=== PATIENT | male | born 1960 | race American Indian/Alaskan Native ===

== ENCOUNTER 2017-08-18 11:56 | Emergency (ER) | payer OTHER ==
--- NOTE | 2017-08-18 13:13 | ED PDOC ---
HPI: General Adult Time Seen by Provider: 08/18/17 12:13 Chief Complaint (Nursing): Med Refill Chief Complaint (Provider): Med Refill History Per: Patient History/Exam Limitations: no limitations Additional Complaint(s): Feliciano Quan is a 57-year-old male with a past medical history of diabetes, hypertension, cataracts, and glaucoma, who presents to the emergency department requesting medication refills. He states that he ran out of insulin, BP meds and eye drops. Patient reports the clinic in [facility] where he was receiving care recently closed, and he is in the process of signing up for insurance in [place]. Patient offers no acute complaints upon arrival. PMD: None Past Medical History Reviewed: Historical Data, Nursing Documentation, Vital Signs - Medical History PMH: Diabetes, HTN Other PMH: Cataracts, Glaucoma - Surgical History Surgical History: No Surg Hx - Family History Family History: States: No Known Family Hx - Living Arrangements Living Arrangements: Alone - Social History Current smoker - smoking cessation education provided: No Alcohol: Occasional Drugs: Denies - Allergies Allergies/Adverse Reactions: Allergies Allergy/AdvReac Type Severity Reaction Status Date / Time No Known Allergies Allergy Verified 08/18/17 13:23 Review of Systems ROS Statement: Except As Marked, All Systems Reviewed And Found Negative Constitutional: Positive for: Other (here for med refill) Physical Exam - Reviewed Nursing Documentation Reviewed: Yes Vital Signs Reviewed: Yes - Physical Exam Appears: Positive for: Well, Non-toxic, No Acute Distress Head Exam: Positive for: ATRAUMATIC, NORMOCEPHALIC Skin: Positive for: Normal Color. Negative for: Rash Eye Exam: Positive for: Normal appearance Cardiovascular/Chest: Positive for: Regular Rate, Rhythm Respiratory: Positive for: Normal Breath Sounds Neurologic/Psych: Positive for: Alert, Oriented - ECG O2 Sat by Pulse Oximetry: 98 Pulse Ox Interpretation: Normal Medical Decision Making Medical Decision Making: Time: 12:55 Initial Impression: Medication refill Initial Plan: * Call placed to [facility] [address] in [place] to verify patient's prescriptions - rx for insulin glargine, valsartan/HCTZ, xalatan drops, cosopt drops and brimonidine eye drops were authorized. Patient is medically stable for discharge. He was advised to order picker prescriptions at [facility] and follow up with new primary doctor or clinic. Scribe Attestation: Documented by Sonia Velasco, acting as a scribe for Mirtha Shelton PA-C Provider Scribe Attestation: All medical record entries made by the Scribe were at my direction and personally dictated by me. I have reviewed the chart and agree that the record accurately reflects my personal performance of the history, physical exam, medical decision making, and the department course for this patient. I have also personally directed, reviewed, and agree with the discharge instructions and disposition. Disposition - Clinical Impression Clinical Impression: Medicine refill - Disposition Referrals: [facility] [Outside] Disposition Time: 13:26 Condition: STABLE Additional Instructions: Go directly to your pharmacy to pickup your medications. Take as directed. Follow up with clinic. Instructions: Medicine Refill (ED) Forms: [employer] (Albanian)
--- NOTE | 2017-08-18 13:14 | ED PDOC ---
HPI: General Adult Time Seen by Provider: 08/18/17 12:13 Chief Complaint (Nursing): Med Refill Chief Complaint (Provider): med refill History Per: Patient Past Medical History - Medical History PMH: HTN Disposition - Clinical Impression Clinical Impression: Medicine refill - Patient ED Disposition Is Patient to be Admitted: No Counseled Patient/Family Regarding: Diagnosis, Need For Followup - Disposition Referrals: [facility] [Outside] Disposition: Routine/Home Disposition Time: 13:03 Condition: STABLE Additional Instructions: Go directly to your pharmacy to pickup your medications. Take as directed. Follow up with clinic. Instructions: Medicine Refill (ED)
[2017-08-18 13:25] VITALS: BP 154/86; PULSE 89; RESP 16; TEMP 98
[2017-08-18 13:26] VITALS: O2SAT 98
== END 2017-08-18 13:14 | disposition home or self-care (01) ==
LOC: H.ER 11:56
DX: Z76.0 Encounter for issue of repeat prescription (principal); E11.9 Type 2 diabetes mellitus without complications; Z79.4 Long term (current) use of insulin; H40.9 Unspecified glaucoma; I10 Essential (primary) hypertension

== ENCOUNTER 2018-01-04 13:59 | Emergency (ER) | payer MEDICAID, OTHER ==
[2018-01-04 14:08] VITALS: TEMP 98
--- NOTE | 2018-01-04 14:37 | ED PDOC ---
HPI: General Adult Time Seen by Provider: 01/04/18 14:21 Chief Complaint (Nursing): Med Refill Chief Complaint (Provider): medication refill History Per: Patient History/Exam Limitations: no limitations Severity: None Additional Complaint(s): 57yo male presents w request for insulin refill, states takes lantus 51units qhs , no daytime sliding scale coverage. Also takes valsartan for HTN, hasnt taken in several days. Has appt w PMD in 2 weeks. BP found to be markedly elevated but he is asymptomatic. Denies polyuria, polydipsia, weakness, headache, chest pain or SOB. Past Medical History Reviewed: Historical Data, Nursing Documentation, Vital Signs Vital Signs: Last Vital Signs Temp 98.0 F 01/04/18 14:04 Pulse 76 01/04/18 14:04 Resp 16 01/04/18 14:04 BP 186/120 H 01/04/18 15:10 Pulse Ox 98 01/04/18 14:37 - Medical History PMH: Diabetes, HTN - Family History Family History: States: Unknown Family Hx - Social History Current smoker - smoking cessation education provided: No - Home Medications Home Medications: Ambulatory Orders Medication Instructions Recorded Insulin Glargine, Recombina 51 unit SQ HS 30 Days ml 01/04/18 [Lantus] Bridgman, Disposable [Bridgman] 1 each MC DAILY #20 dis.needle 01/04/18 Valsartan [Diovan] 80 mg PO DAILY #20 tab 01/04/18 - Allergies Allergies/Adverse Reactions: Allergies Allergy/AdvReac Type Severity Reaction Status Date / Time No Known Allergies Allergy Verified 01/04/18 14:04 Review of Systems Constitutional: Negative for: Fever ENT: Negative for: Throat Pain Cardiovascular: Negative for: Chest Pain, Palpitations Respiratory: Negative for: Cough, Shortness of Breath Gastrointestinal: Negative for: Abdominal Pain Genitourinary Male: Negative for: Dysuria, Frequency, Incontinence Musculoskeletal: Negative for: Neck Pain, Arm Pain, Back Pain, Leg Pain Skin: Negative for: Rash, Lesions, Jaundice Neurological: Negative for: Weakness, Numbness, Confusion, Headache Physical Exam - Reviewed Nursing Documentation Reviewed: Yes Vital Signs Reviewed: Yes - Physical Exam Appears: Positive for: Well, Non-toxic Head Exam: Positive for: ATRAUMATIC Eye Exam: Positive for: Normal appearance Cardiovascular/Chest: Positive for: Regular Rate, Rhythm Respiratory: Negative for: Respiratory Distress Extremity: Negative for: Deformity, Swelling Neurologic/Psych: Positive for: Alert, disaster recovery analyst II-XII, Oriented, Gait (normal). Negative for: Motor/Sensory Deficits - ECG O2 Sat by Pulse Oximetry: 98 Medical Decision Making Medical Decision Making: BP control initated and accucheck performed BP improved approx 15% in ED, given asymptomatic, ACEP does not recommend further lowering in ED precipitously. Rx valsartan, followup BP 1-3 days w PMD for check. Indications for return to ER discussed. Disposition - Clinical Impression Clinical Impression: Medicine refill, Hypertension - Patient ED Disposition Is Patient to be Admitted: No Counseled Patient/Family Regarding: Studies Performed, Diagnosis, Need For Followup, Rx Given - Disposition Disposition: Routine/Home Disposition Time: 15:27 Condition: STABLE Additional Instructions: See your doctor for blood pressure check in 2-3 days. Return to ER for any worse symptoms, headache, weakness, chest pain, change in vision, or any concern /. Prescriptions: Insulin Glargine, Recombina [Lantus] 51 unit SQ HS 30 Days ml Bridgman, Disposable [Bridgman] 1 each MC DAILY #20 dis.needle Valsartan [Diovan] 80 mg PO DAILY #20 tab Instructions: High Blood Pressure in Adults, Diabetes Diet , Hyperglycemia, Adult (DC), Low Salt Diet Forms: [facility] (T[place]ight)
[2018-01-04 15:59] VITALS: BP 179/97; PULSE 79; RESP 14; O2SAT 100
== END 2018-01-04 15:47 | disposition home or self-care (01) ==
LOC: H.ER 13:59
DX: Z76.0 Encounter for issue of repeat prescription (principal); E11.9 Type 2 diabetes mellitus without complications; Z79.4 Long term (current) use of insulin; I10 Essential (primary) hypertension

== ENCOUNTER 2019-01-16 14:31 | Emergency (ER) | payer MEDICAID, OTHER ==
[2019-01-16 14:58] VITALS: TEMP 98.7; O2SAT 99
--- NOTE | 2019-01-16 15:46 | ED PDOC ---
HPI: Hypertension/Hypotension Time Seen by Provider: 01/16/19 15:03 Chief Complaint (Nursing): High Blood Pressure Chief Complaint (Provider): High Blood Pressure History Per: Patient History/Exam Limitations: no limitations Onset/Duration Of Symptoms: Days (x2) Associated Symptoms: Dizziness. denies: Chest Pain, Focal Weakness, Headache Additional Complaint(s): 58 years old male with history of hypertension presents to ER for evaluation of dizziness onset 2 days ago. Patient reports he started on new medication for blood pressure yesterday. He denies any headache, chest pain, shortness of breath or focal weakness. PMD: None provided Past Medical History Reviewed: Historical Data, Nursing Documentation, Vital Signs Vital Signs: Last Vital Signs Temp 98.7 F 01/16/19 14:56 Pulse 81 01/16/19 14:56 Resp 16 01/16/19 14:56 BP 194/120 H 01/16/19 14:56 Pulse Ox 99 01/16/19 14:56 Primary Care Provider: Non [facility] Provider, - Medical History PMH: Diabetes, HTN - Surgical History Surgical History: No Surg Hx - Family History Family History: States: Unknown Family Hx - Home Medications Home Medications: Ambulatory Orders Medication Instructions Recorded Insulin Glargine, Recombina 51 unit SQ HS 30 Days ml 01/04/18 [Lantus] Pecos, Disposable [Pecos] 1 each MC DAILY #20 dis.needle 01/04/18 Valsartan [Diovan] 80 mg PO DAILY #20 tab 01/04/18 - Allergies Allergies/Adverse Reactions: Allergies Allergy/AdvReac Type Severity Reaction Status Date / Time No Known Allergies Allergy Verified 01/04/18 14:04 Review of Systems ROS Statement: Except As Marked, All Systems Reviewed And Found Negative Cardiovascular: Negative for: Chest Pain Respiratory: Negative for: Shortness of Breath Neurological: Positive for: Dizziness. Negative for: Weakness (focal), Headache Physical Exam - Reviewed Nursing Documentation Reviewed: Yes Vital Signs Reviewed: Yes - Physical Exam Appears: Positive for: Well Head Exam: Positive for: ATRAUMATIC, NORMOCEPHALIC Skin: Positive for: Normal Color, Warm, Dry Eye Exam: Positive for: Normal appearance, EOMI, PERRL ENT: Positive for: Normal ENT Inspection Neck: Positive for: Normal, Painless ROM, Supple Cardiovascular/Chest: Positive for: Regular Rate, Rhythm. Negative for: Murmur Respiratory: Positive for: Normal Breath Sounds. Negative for: Respiratory Distress Gastrointestinal/Abdominal: Positive for: Normal Exam, Soft. Negative for: Tenderness Back: Positive for: Normal Inspection. Negative for: L CVA Tenderness, R CVA Tenderness Extremity: Positive for: Normal ROM. Negative for: Pedal Edema, Swelling Neurological/Psych: Positive for: Awake, Alert, Symmetric/Intact Strength, Oriented (x3). Negative for: Motor/Sensory Deficits - ECG O2 Sat by Pulse Oximetry: 99 (RA) Pulse Ox Interpretation: Normal Medical Decision Making Medical Decision Making: Time: 1532 Initial plan: --Patient's blood pressure is 192/120, will administer Metoprolol 25 mg PO and recheck blood pressure Scribe Attestation: Documented by Nadia Alvarado acting as a scribe for uRssell Liao MD. BP checked by me 170/95. Pt asymptomatic, will dc home and have pt f[facility]u [facility] for BP check Provider Scribe Attestation: All medical record entries made by the Scribe were at my direction and personally dictated by me. I have reviewed the chart and agree that the record accurately reflects my personal performance of the history, physical exam, medical decision making, and the department course for this patient. I have also personally directed, reviewed, and agree with the discharge instructions and disposition. Disposition - Clinical Impression Clinical Impression: Hypertension - Patient ED Disposition Is Patient to be Admitted: No Counseled Patient/Family Regarding: Diagnosis, Need For Followup - Disposition Referrals: [facility] [Outside] Disposition: Routine/Home Disposition Time: 18:48 Condition: FAIR Instructions: High Blood Pressure in Adults Forms: [employer] (Romansh)
[2019-01-16 18:45] VITALS: RESP 18
[2019-01-16 19:05] VITALS: BP 169/103; PULSE 65
== END 2019-01-16 18:49 | disposition home or self-care (01) ==
LOC: H.ER 14:31
DX: I10 Essential (primary) hypertension (principal); E11.9 Type 2 diabetes mellitus without complications; Z79.4 Long term (current) use of insulin